=== PATIENT | female | born 1990 | race Caucasian/White ===

== ENCOUNTER 2023-03-06 01:00 | Emergency (ER) | payer BC, MEDICAID ==
[2023-03-06] MEDS ORDERED: Acetaminophen 325 MG Tab PO ONE (02:01)
[2023-03-06] MEDS ORDERED: Sodium Chloride 0.9% 1,000 ML IV ONE (02:05)
[2023-03-06] MEDS ORDERED: Nystatin Susp 100,000 Unit/ML 5 ML Oral Syringe PO SCH ×2 (02:11→09:00)
[2023-03-06 03:13] LABS: CORONAVIRUS COVID-19 NAA NEGATIVE (NEGATIVE)
[2023-03-06 03:27] VITALS: BP 111/77; PULSE 110
== END 2023-03-06 03:18 | disposition home or self-care (01) ==
LOC: JD.ED 01:00
DX: J02.9 Acute pharyngitis, unspecified (principal); K13.29 Other disturbances of oral epithelium, including tongue; Z20.822 Contact with and (suspected) exposure to COVID-19
CPT/HCPCS: 0240U; 36415; 80053; 85025; 86308; 87651; 96360; 99283; A9270; J7030

== ENCOUNTER 2024-05-09 20:10 | Emergency (ER) | payer OTHER, MEDICAID ==
[2024-05-09 22:28] VITALS: BP 154/92; PULSE 78
== END 2024-05-09 22:27 | disposition home or self-care (01) ==
LOC: JD.ED 20:10
DX: O26.851 Spotting complicating pregnancy, first trimester (principal); Z86.16 Personal history of COVID-19; Z3A.11 11 weeks gestation of pregnancy
CPT/HCPCS: 76817; 76817-26; 99284